=== PATIENT | female | born 1990 | race Hispanic/Latino ===

== ENCOUNTER 2019-02-17 21:07 | Emergency (ER) | payer BC ==
[2019-02-17 21:49] LABS: Urine Specific Gravity 1.015 (1.005-1.030)
[2019-02-17] MEDS ORDERED: METHYLPREDNISOLONE 125 MG INJ ONE (21:51)
[2019-02-17] MEDS ORDERED: NA CHLORIDE 0.9% 1,000 ML ONE (22:53)
--- NOTE | 2019-02-17 23:11 | EDPHYS ---
Physician Documentation [facility] Name: Nelly Hightower Age: 28 yrs Sex: Female : 1990 Arrival Date: 02/17/2019 Time: 21:09 Bed 7 Private MD: Scooter Espinosa E ED Physician Neto Ford HPI: 02/17 22:15 This 28 yrs old Female presents to ER via Ambulatory with complaints of Hives. rn 22:15 The patient's rash thought to be caused by an unknown cause. The rash is located on the rn body diffusely. The rash can be described as urticarial. Onset: The symptoms/episode began/occurred today. Associated signs and symptoms: Pertinent positives: itching, Pertinent negatives: burning sensation, fever, swelling of lips, swelling of throat, swelling of tongue, vomiting, wheezing. Severity of symptoms: At their worst the symptoms were mild in the emergency department the symptoms are unchanged. The patient has experienced similar episodes in the past. REports has had multiple similar and more mild reactions in past, usually goes away with benadryl and time, today more widespread rash, itchy, no new exposure, no trouble breathing. Some improvement with benadryl at home.. 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 - Social history:: Smoking status: unknown Smoking status: Patient/guardian denies using tobacco. - Ebola Screening: : No symptoms or risks identified at this time No symptoms or risks identified at this time. - Family history:: not pertinent. - Hospitalizations: : No recent hospitalization is reported. ROS: 22:17 Constitutional: Negative for fever, chills, and weight loss, Eyes: Negative for injury, rn pain, redness, and discharge, Neck: Negative for injury, pain, and swelling, Cardiovascular: Negative for chest pain, palpitations, and edema, Respiratory: Negative for shortness of breath, cough, wheezing, and pleuritic chest pain, Abdomen/GI: + nausea MS/Extremity: Negative for injury and deformity, Skin: + urticarial lesions throughout Neuro: Negative for headache, weakness, numbness, tingling, and seizure. Exam: 22:17 Constitutional: This is a well developed, well nourished patient who is awake, alert, rn and in no acute distress. Head/Face: Normocephalic, atraumatic. Eyes: Pupils equal round and reactive to light, extra-ocular motions intact. Lids and lashes normal. Conjunctiva and sclera are non-icteric and not injected. Cornea within normal limits. Periorbital areas with no swelling, redness, or edema. ENT: no stridor, no oral swelling Respiratory: No increased work of breathing, no retractions or nasal flaring. Abdomen/GI: soft, non-tender Skin: Warm, dry, + diffuse confluent urticarial lesions to all 4 ext and trunk, no sloughing of skin, no bullae MS/ Extremity: Pulses equal, no cyanosis. Neurovascular intact. Full, normal range of motion. Equal circumference. Neuro: Awake and alert, GCS 15, oriented to person, place, time, and situation. Cranial nerves II-XII grossly intact. Motor strength 5/5 in all extremities. Sensory grossly intact. Normal gait Vital Signs: 21:41 BP 111 / 83; Pulse 128; Resp 16 S; Temp 98.4(O); Pulse Ox 99% on R/A; Weight 111.13 kg bb (R); Height 5 ft. 2 in. (157.48 cm) (R); Pain 0/10; 22:09 BP 97 / 59; Pulse 110; Resp 16; Temp 98.4; Pulse Ox 99% on R/A; ak1 23:19 BP 106 / 51; Pulse 95; Resp 16; Temp 98.1; Pulse Ox 100% on R/A; ak1 21:41 Body Mass Index 44.81 (111.13 kg, 157.48 cm) bb MDM: 21:17 Patient medically screened. rn 23:09 Differential diagnosis: allergic reaction, urticaria. Data reviewed: vital signs, rn nurses notes, lab test result(s), UPT: and as a result, I will discharge patient. Counseling: I had a detailed discussion with the patient and/or guardian regarding: the historical points, exam findings, and any diagnostic results supporting the discharge/admit diagnosis, lab results, the need for outpatient follow up, to return to the emergency department if symptoms worsen or persist or if there are any questions or concerns that arise at home. Response to treatment: the patient's symptoms have markedly improved after treatment, hives resolved, feels much better, normal vitals now., and as a result, I will discharge patient. ED course: Pt states mother with allergic reactions/angioedema in past, told her may be hereditary, recommend f/u with pantry steward/stewardess.. 02/17 21:41 Order name: Urine --Ancillary (enter results); Complete Time: 21:51 oe 02/17 21:26 Order name: Urine Test (obtain specimen); Complete Time: 21:41 rn 02/17 22:17 Order name: IV Start; Complete Time: 22:39 rn Administered Medications: 21:43 Drug: SOLU-Medrol 125 mg Route: IM; Site: right gluteus; ak1 22:38 Follow up: Response: No adverse reaction ak1 22:40 Drug: NS 0.9% 1000 ml Route: IV; Rate: 1000 ml; Site: right antecubital; ak1 23:36 Follow up: IV Status: Completed infusion; IV Intake: 1000ml ak1 Disposition: 02/17/19 23:10 Discharged to Home. Impression: Urticaria, unspecified. - Condition is Stable. - Discharge Instructions: Hives. - Prescriptions for Prednisone 20 mg Oral Tablet - take 3 tablet by ORAL route once daily for 5 days; 15 tablet. EpiPen 0.3 mg Injection auto- injector - inject 1 pen by INTRAMUSCULAR route one time As needed Inject into the outer portion of the thigh, through clothing if necessary. Indicated in the emergency treatment of allergic reactions; 2 Pack. - Medication Reconciliation Form, Thank You Letter, Antibiotic Education, Prescription Opioid Use form. - Follow up: Private Physician; When: As needed; Reason: Recheck today's complaints, Re-evaluation by your physician. - Problem is new. - Symptoms have improved. Signatures: Dispatcher [employer] EDMS Alida Lewis RN RN Neto Sadler MD MD rn Krenek, Amber, RN RN ak1 Corrections: (The following items were deleted from the chart) 23:46 23:10 02/17/2019 23:10 Discharged to Home. Impression: Urticaria, unspecified. ak1 Condition is Stable. Forms are Medication Reconciliation Form, Thank You Letter, Antibiotic Education, Prescription Opioid Use. Follow up: Private Physician; When: As needed; Reason: Recheck today's complaints, Re-evaluation by your physician. Problem is new. Symptoms have improved. rn
--- NOTE | 2019-02-17 23:11 | ER ---
Nurse's Notes [facility] Name: Nelly Hightower Age: 28 yrs Sex: Female : 1990 Arrival Date: 02/17/2019 Time: 21:09 Bed 7 Private MD: Scooter Espinosa E Diagnosis: Urticaria, unspecified Presentation: 02/17 21:37 Presenting complaint: Patient states: hives that started suddenly tonight. no resp ak1 distress noted. 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 Transition of care: patient was not received from another setting of care. Onset: The symptoms/episode began/occurred acutely. Anaphylaxis evaluation, no signs or symptoms of anaphylaxis were noted. Onset of symptoms was February 17, 2019. Risk Assessment: Do you want to hurt yourself or someone else? Patient reports no desire to harm self or others. Initial Sepsis Screen: Does the patient meet any 2 criteria? No. Patient's initial sepsis screen is negative. Does the patient have a suspected source of infection? No. Patient's initial sepsis screen is negative. Care prior to arrival: None. 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 - Social history:: Smoking status: unknown Smoking status: Patient/guardian denies using tobacco. - Ebola Screening: : No symptoms or risks identified at this time No symptoms or risks identified at this time. - Family history:: not pertinent. - Hospitalizations: : No recent hospitalization is reported. Screenin:40 Abuse screen: Denies threats or abuse. Denies injuries from another. Nutritional ak1 screening: No deficits noted. Tuberculosis screening: No symptoms or risk factors identified. Fall Risk None identified. Assessment: 21:39 General: Appears in no apparent distress. Behavior is calm, cooperative, appropriate ak1 for age. Pain: Denies pain. Neuro: No deficits noted. Cardiovascular: No deficits noted. Respiratory: Airway is patent Respiratory effort is even, unlabored, Breath sounds are clear. GI: No signs and/or symptoms were reported involving the gastrointestinal system. : No signs and/or symptoms were reported regarding the genitourinary system. EENT: No signs and/or symptoms were reported regarding the EENT system. Derm: Rash noted that is itchy, red. Musculoskeletal: No signs and/or symptoms reported regarding the musculoskeletal system. 22:08 Reassessment: Patient appears in no apparent distress at this time. No changes from ak1 previously documented assessment. Patient and/or family updated on plan of care and expected duration. Pain level reassessed. Patient is alert, oriented x 3, equal unlabored respirations, skin warm/dry/pink. 22:42 Reassessment: hives have diminished, pt stated itching has decreased as well. pt and ak1 family informed of plan of care to be discharged after fluid bolus if pt hives continues to decrease and pt heart rate decreases. Vital Signs: 21:41 BP 111 / 83; Pulse 128; Resp 16 S; Temp 98.4(O); Pulse Ox 99% on R/A; Weight 111.13 kg bb (R); Height 5 ft. 2 in. (157.48 cm) (R); Pain 0/10; 22:09 BP 97 / 59; Pulse 110; Resp 16; Temp 98.4; Pulse Ox 99% on R/A; ak1 23:19 BP 106 / 51; Pulse 95; Resp 16; Temp 98.1; Pulse Ox 100% on R/A; ak1 21:41 Body Mass Index 44.81 (111.13 kg, 157.48 cm) ED Course: 21:09 Patient arrived in ED. am2 21:15 Scooter Espinosa MD is Private Physician. am2 21:17 Neto Ford MD is Attending Physician. rn 21:30 Lana Velasquez, HORACE is Primary Nurse. ak1 21:38 Triage completed. ak1 21:40 Arm band placed on Patient placed in an exam room, on a stretcher, on pulse oximetry, ak1 Patient notified of wait time. 21:40 Patient has correct armband on for positive identification. Bed in low position. Call ak1 light in reach. Side rails up X 1. Adult w/ patient. Pulse ox on. NIBP on. 22:39 Inserted saline lock: 22 gauge in right antecubital area, using aseptic technique. oe 23:19 No provider procedures requiring assistance completed. ak1 23:34 IV discontinued, intact, bleeding controlled, No redness/swelling at site. Pressure ak1 dressing applied. Administered Medications: 21:43 Drug: SOLU-Medrol 125 mg Route: IM; Site: right gluteus; ak1 22:38 Follow up: Response: No adverse reaction ak1 22:40 Drug: NS 0.9% 1000 ml Route: IV; Rate: 1000 ml; Site: right antecubital; ak1 23:36 Follow up: IV Status: Completed infusion; IV Intake: 1000ml ak1 Intake: 23:36 IV: 1000ml; Total: 1000ml. ak1 Outcome: 23:10 Discharge ordered by . rn 23:20 Condition: stable ak1 23:20 Discharge instructions given to patient, family, Instructed on discharge instructions, follow up and referral plans. medication usage, safe sex practices, Demonstrated understanding of instructions, follow-up care, medications, Prescriptions given X 2. 23:45 Discharged to home ambulatory, with family. ak1 23:46 Patient left the ED. ak1 Signatures: Alida Lewis, RN RN Neto Sadler MD MD rn Krenek, Amber, RN RN ak1 Cesar Jenkins Amanda am2
[2019-02-18 01:06] VITALS: BP 106/51; TEMP 98.1; O2SAT 100
== END 2019-02-17 23:46 | disposition home or self-care (01) ==
LOC: ER 21:07
DX: L50.9 Urticaria, unspecified (principal)
CPT/HCPCS: 81025; 96360; 96372; 99284; J2930; J7030